=== PATIENT | female | born 2000 | race Two or more races ===

== ENCOUNTER 2021-10-23 18:30 | Emergency (ER) | payer MEDICAID ==
[~2021-10-23] VITALS: Ht 165.1 cm; Wt 115.0 kg
[2021-10-23 18:55] VITALS: BP 130/89
== END 2021-10-24 04:32 | disposition left against medical advice (07) ==
LOC: EDBD 18:30 → ER 18:47
DX: M25.512 Pain in left shoulder (principal); Z53.21 Procedure and treatment not carried out due to patient leaving prior to being seen by health care provider; V49.9XXA Car occupant (driver) (passenger) injured in unspecified traffic accident, initial encounter; Y93.89 Activity, other specified; Y92.410 Unspecified street and highway as the place of occurrence of the external cause; Y99.8 Other external cause status
CPT/HCPCS: 73030

== ENCOUNTER 2023-09-04 00:32 | Observation (INO) | payer MEDICAID ==
[~2023-09-04 00:32] MED LIST: NITR-87 PO
== END 2023-09-04 02:14 | disposition home or self-care (01) ==
LOC: LDRP 00:32
PROVIDERS: ADMIT Obstetrics & Gynecology; ATTEND Obstetrics & Gynecology
DX: O99.891 Other specified diseases and conditions complicating pregnancy (principal); M25.572 Pain in left ankle and joints of left foot; Z3A.23 23 weeks gestation of pregnancy; W18.30XA Fall on same level, unspecified, initial encounter; Y93.89 Activity, other specified; Y92.89 Other specified places as the place of occurrence of the external cause; Y99.8 Other external cause status
CPT/HCPCS: 59025; 76815; 81002; G0378

== ENCOUNTER 2023-12-04 11:15 | Observation (INO) | payer MEDICAID | END 2023-12-04 12:49 | disposition home or self-care (01) | LOC: LDRP 11:15 | PROVIDERS: ADMIT Obstetrics & Gynecology; ATTEND Obstetrics & Gynecology | DX: O26.853 Spotting complicating pregnancy, third trimester (principal); Z3A.36 36 weeks gestation of pregnancy | CPT/HCPCS: 59025; 76815; 81002; 94760; G0378 ==